=== PATIENT | male | born 1960 | race Caucasian/White ===

== ENCOUNTER 2021-06-19 11:34 | Inpatient (IN) | payer OTHER ==
[2021-06-19 12:05] VITALS: BMI 26.6
[2021-06-19] MEDS ORDERED: FUROSEMIDE 40 MG/4 ML INJECTABLE VIAL IVPUSH ONE (13:15)
[2021-06-19] MEDS ORDERED: NITROGLYCERIN 2% OINTMENT - 1GM PACKET TD ONE ×2 (13:15→13:38)
[2021-06-19] MEDS ORDERED: NITROGLYCERIN SUBLINGUAL 1/150 0.4 MG TAB SL ONE (13:15)
[2021-06-19 13:21] LABS: VENOUS BASE EXCESS -1.4 mmol/L (-2-2); VENOUS PCO2 40.7 mmHg (38-52); VENOUS PH 7.381 (7.310-7.410)
[2021-06-19 13:22] LABS: BASO % 0.6 % (0-2.0); EOS % 0.7 % (0-4.5); HEMOGLOBIN 10.1 GM/dL (11.7-16.9); LYMPH % 7.1 % (8-40); MCH 30.2 pg (25.7-33.7); MCHC 31.7 g/dl (32.0-35.9); MEAN CELL VOLUME 95.3 fl (80-96); MEAN PLT VOLUME 9.2 fl (7.5-11.1); MONO % 8.2 % (3.8-10.2); NEUT % 83.4 % (42.8-82.8); PLATELET COUNT 237 10^3/uL (134-434); RBC 3.36 M/mm3 (4.00-5.60); RDW 19.7 % (11.9-15.9); WHITE BLOOD COUNT 7.4 K/mm3 (4.0-10.0)
[2021-06-19 13:31] LABS: INR 2.71 (0.83-1.09); PROTHROMBIN TIME (PATIENT) 31.5 SEC (9.7-13.0)
[2021-06-19 13:33] LABS: ACTIVATED PTT 40.7 SECONDS (25.2-36.5)
[2021-06-19] MEDS ORDERED: FUROSEMIDE 40 MG/4 ML INJECTABLE VIAL ONE (13:38)
[2021-06-19] MEDS ORDERED: NITROGLYCERIN SUBLINGUAL 1/150 0.4 MG TAB ONE (13:38)
[2021-06-19 13:47] LABS: BLOOD UREA NITROGEN 36.2 mg/dL (7-18); CALCIUM 8.6 mg/dL (8.5-10.1)
[2021-06-19 13:48] LABS: ALBUMIN 3.4 g/dl (3.4-5.0); MAGNESIUM 2.3 mg/dL (1.8-2.4)
[2021-06-19 13:51] LABS: CREATININE 1.8 mg/dL (0.55-1.3)
[2021-06-19 13:52] LABS: TOT PROT 6.9 g/dl (6.4-8.2)
[2021-06-19 13:53] LABS: BILIRUBIN,TOTAL 1.2 mg/dL (0.2-1)
[2021-06-19 13:56] LABS: N-TERMINAL BNP 7647.3 pg/ml (5-125)
[2021-06-19] MEDS ORDERED: levETIRAcetam 500 MG TABLET (FP) PO ONE (21:18)
[2021-06-19] MEDS ORDERED: ATORVASTATIN CA 80 MG TABLET (FP) ONE (21:18)
[2021-06-19] MEDS ORDERED: METOPROLOL TARTRATE 25 MG TABLET (FP) ONE (21:18)
[2021-06-19] MEDS ORDERED: DOCUSATE SODIUM 100 MG CAPSULE (FP) PO ONE (21:19)
[2021-06-19] MEDS: DOCUSATE SODIUM 100 MG CAPSULE (FP) PO SCH (22:40)
[2021-06-19] MEDS: ATORVASTATIN CA 80 MG TABLET (FP) PO SCH (22:40)
[2021-06-19] MEDS: METOPROLOL TARTRATE 25 MG TABLET (FP) PO SCH (22:40)
[2021-06-19] MEDS: levETIRAcetam XR 750 MG TAB PO SCH (22:40)
[2021-06-19 23:03] LABS: EPI CELLS 2 /uL (0-25.1); HYALINE CASTS 0 /uL (0-3.1); PH,URINE 5.5 (5.0-8.0); URINE APPEARANCE Error; URINE BACTERIA 0 /uL (0-1359); URINE BILIRUBIN NEGATIVE (NEGATIVE); URINE COLOR YELLOW; URINE GLUCOSE (UA) NEGATIVE (NEGATIVE); URINE KETONE NEGATIVE (NEGATIVE); URINE LEUK ESTERASE TRACE (NEGATIVE); URINE NITRITE NEGATIVE (NEGATIVE); URINE PROTEIN 2+ (NEGATIVE); URINE RBC 5 /uL (0-23.9); URINE UROBILINOGEN 0.2 mg/dL (0.2-1.0); URINE WBC 1 /uL (0-25.8)
[2021-06-20] MEDS ORDERED: hydrALAZINE HCL 20 MG/ML VIAL IVPUSH ONE (08:07)
[2021-06-20 08:50] LABS: INR 2.3 (0.83-1.09); PROTHROMBIN TIME (PATIENT) 26.7 SEC (9.7-13.0)
[2021-06-20 08:53] LABS: BASO % 0.6 % (0-2.0); EOS % 3.5 % (0-4.5); HEMOGLOBIN 10.2 GM/dL (11.7-16.9); MCH 30.2 pg (25.7-33.7); MCHC 31.8 g/dl (32.0-35.9); MEAN PLT VOLUME 8.9 fl (7.5-11.1); MONO % 7.3 % (3.8-10.2); NEUT % 83.6 % (42.8-82.8); PLATELET COUNT 233 10^3/uL (134-434); RBC 3.37 M/mm3 (4.00-5.60); WHITE BLOOD COUNT 7.9 K/mm3 (4.0-10.0)
[2021-06-20 09:02] LABS: CALCIUM 8.2 mg/dL (8.5-10.1); PHOSPHOROUS 5.4 mg/dL (2.5-4.9)
[2021-06-20 09:03] LABS: ALBUMIN 3.3 g/dl (3.4-5.0); BLOOD UREA NITROGEN 35.6 mg/dL (7-18); MAGNESIUM 2.3 mg/dL (1.8-2.4)
[2021-06-20 09:04] LABS: BILIRUBIN,TOTAL 1.3 mg/dL (0.2-1)
[2021-06-20 09:06] LABS: CREATININE 1.7 mg/dL (0.55-1.3)
[2021-06-20] MEDS ORDERED: MAGNESIUM SULF 50% (8.12 MEQ/2 ML-1 GM VIAL) IVPB ONE (09:45)
[2021-06-20] MEDS ORDERED: FUROSEMIDE 40 MG/4 ML INJECTABLE VIAL IVPUSH ONE (09:57)
[2021-06-20] MEDS ORDERED: amLODIPine BESYLATE 5 MG TABLET (FP) PO SCH (10:00)
[2021-06-20] MEDS ORDERED: FUROSEMIDE 40 MG/4 ML INJECTABLE VIAL IVPUSH SCH ×3 (10:00→22:00)
[2021-06-20] MEDS ORDERED: METOPROLOL TARTRATE 25 MG TABLET (FP) PO SCH (10:02)
[2021-06-20] MEDS ORDERED: POTASSIUM CHLORIDE TABS 10 MEQ TABLET.ER (FP) ONE (10:05)
[2021-06-20] MEDS ORDERED: amLODIPine BESYLATE 5 MG TABLET (FP) ONE ×2 (10:05→20:02)
[2021-06-20] MEDS ORDERED: DOCUSATE SODIUM 100 MG CAPSULE (FP) PO ONE (10:05)
[2021-06-20] MEDS ORDERED: FUROSEMIDE 40 MG/4 ML INJECTABLE VIAL ONE ×2 (10:06)
[2021-06-20] MEDS ORDERED: MAGNESIUM SULFATE IN WATER 2 GM/50 ML IVPB IVPB ONE (10:06)
[2021-06-20] MEDS: POTASSIUM CHLORIDE TABS 10 MEQ TABLET.ER (FP) PO SCH (10:25)
[2021-06-20] MEDS: DOCUSATE SODIUM 100 MG CAPSULE (FP) PO SCH ×2 (10:25→23:30)
[2021-06-20] MEDS: levETIRAcetam XR 750 MG TAB PO SCH ×2 (10:25→23:30)
[2021-06-20 12:35] LABS: RETICULOCYTES 3.45 % (0.5-1.5)
[2021-06-20] MEDS ORDERED: amLODIPine BESYLATE 5 MG TABLET (FP) PO ONE (18:50)
[2021-06-20] MEDS ORDERED: WARFARIN NA 1 MG TABLET ONE (20:02)
[2021-06-20] MEDS: WARFARIN NA 2 MG TABLET PO SCH (20:15)
[2021-06-20] MEDS: METOPROLOL TARTRATE 25 MG TABLET (FP) PO SCH (23:30)
[2021-06-20] MEDS: ATORVASTATIN CA 80 MG TABLET (FP) PO SCH (23:40)
[2021-06-21] MEDS ORDERED: ATORVASTATIN CA 80 MG TABLET (FP) ONE (01:54)
[2021-06-21] MEDS ORDERED: METOPROLOL TARTRATE 25 MG TABLET (FP) ONE (01:54)
[2021-06-21] MEDS ORDERED: levETIRAcetam 500 MG TABLET (FP) PO ONE (01:54)
[2021-06-21 07:29] LABS: CALCIUM 8.3 mg/dL (8.5-10.1)
[2021-06-21 07:30] LABS: BLOOD UREA NITROGEN 36.3 mg/dL (7-18); MAGNESIUM 2.6 mg/dL (1.8-2.4)
[2021-06-21 07:33] LABS: CREATININE 1.8 mg/dL (0.55-1.3); PHOSPHOROUS 5.4 mg/dL (2.5-4.9)
[2021-06-21 09:03] LABS: BASO % 0.6 % (0-2.0); EOS % 2.3 % (0-4.5); HEMATOCRIT 29.1 % (35.4-49); HEMOGLOBIN 9.4 GM/dL (11.7-16.9); LYMPH % 4.9 % (8-40); MCH 30.7 pg (25.7-33.7); MCHC 32.5 g/dl (32.0-35.9); MEAN CELL VOLUME 94.5 fl (80-96); MEAN PLT VOLUME 9.3 fl (7.5-11.1); MONO % 8.1 % (3.8-10.2); NEUT % 84.1 % (42.8-82.8); PLATELET COUNT 227 10^3/uL (134-434); RBC 3.07 M/mm3 (4.00-5.60); RDW 19.4 % (11.9-15.9); WHITE BLOOD COUNT 8.9 K/mm3 (4.0-10.0)
[2021-06-21] MEDS: POTASSIUM CHLORIDE TABS 10 MEQ TABLET.ER (FP) PO SCH (09:55)
[2021-06-21] MEDS: DOCUSATE SODIUM 100 MG CAPSULE (FP) PO SCH ×2 (09:56→21:40)
[2021-06-21] MEDS: METOPROLOL TARTRATE 25 MG TABLET (FP) PO SCH ×2 (09:56→21:40)
[2021-06-21] MEDS: levETIRAcetam XR 750 MG TAB PO SCH ×2 (09:58→21:41)
[2021-06-21] MEDS ORDERED: FUROSEMIDE 40 MG/4 ML INJECTABLE VIAL IVPUSH SCH (10:00)
[2021-06-21] MEDS ORDERED: amLODIPine BESYLATE 10 MG TABLET (FP) PO SCH (10:00)
[2021-06-21] MEDS ORDERED: PANTOPRAZOLE 40 MG TABLET PO SCH (10:00)
[2021-06-21] MEDS ORDERED: FERRIC CARBOXYMALTOSE 750 MG in SODIUM CHLORIDE 250 ML IVPB ONE (15:00)
[2021-06-21 16:58] LABS: INR 2.23 (0.83-1.09); PROTHROMBIN TIME (PATIENT) 25.8 SEC (9.7-13.0)
[2021-06-21] MEDS: WARFARIN NA 2 MG TABLET PO SCH (17:19)
[2021-06-21] MEDS: ATORVASTATIN CA 80 MG TABLET (FP) PO SCH (21:40)
[2021-06-22] MEDS: METOPROLOL TARTRATE 25 MG TABLET (FP) PO SCH ×2 (09:13→21:12)
[2021-06-22] MEDS: PANTOPRAZOLE 40 MG TABLET PO SCH (09:14)
[2021-06-22] MEDS: amLODIPine BESYLATE 10 MG TABLET (FP) PO SCH (09:14)
[2021-06-22] MEDS: POTASSIUM CHLORIDE TABS 10 MEQ TABLET.ER (FP) PO SCH (09:14)
[2021-06-22] MEDS: DOCUSATE SODIUM 100 MG CAPSULE (FP) PO SCH ×2 (09:14→21:12)
[2021-06-22] MEDS: levETIRAcetam XR 750 MG TAB PO SCH ×2 (09:15→21:12)
[2021-06-22 09:24] LABS: HEMATOCRIT 32.9 % (35.4-49); HEMOGLOBIN 10.7 GM/dL (11.7-16.9); INR 2.39 (0.83-1.09); MCH 30.4 pg (25.7-33.7); MCHC 32.4 g/dl (32.0-35.9); MEAN PLT VOLUME 8.7 fl (7.5-11.1); PLATELET COUNT 226 10^3/uL (134-434); PROTHROMBIN TIME (PATIENT) 27.7 SEC (9.7-13.0); RDW 19.5 % (11.9-15.9); WHITE BLOOD COUNT 6.4 K/mm3 (4.0-10.0)
[2021-06-22 09:57] LABS: ALBUMIN 3.2 g/dl (3.4-5.0); BLOOD UREA NITROGEN 38.7 mg/dL (7-18); CALCIUM 8.4 mg/dL (8.5-10.1)
[2021-06-22 10:00] LABS: CREATININE 1.9 mg/dL (0.55-1.3); MAGNESIUM 2.4 mg/dL (1.8-2.4)
[2021-06-22] MEDS ORDERED: FUROSEMIDE 40 MG/4 ML INJECTABLE VIAL IVPUSH SCH (10:00)
[2021-06-22 10:02] LABS: BILIRUBIN,TOTAL 1.3 mg/dL (0.2-1); TOT PROT 6.7 g/dl (6.4-8.2)
[2021-06-22] MEDS ORDERED: LABETALOL HCL 100 MG TABLET (FP) PO SCH (11:00)
[2021-06-22] MEDS: hydrALAZINE HCL 25 MG TABLET (FP) PO SCH ×3 (11:26→21:12)
[2021-06-22] MEDS: FUROSEMIDE 40 MG/4 ML INJECTABLE VIAL IVPUSH SCH (14:05)
[2021-06-22 15:11] LABS: N-TERMINAL BNP 5494.2 pg/ml (5-125)
[2021-06-22] MEDS: WARFARIN NA 2 MG TABLET PO SCH (17:01)
[2021-06-22] MEDS ORDERED: MELATONIN 5 MG TABLETS PO PRN (20:39)
[2021-06-22] MEDS: ATORVASTATIN CA 80 MG TABLET (FP) PO SCH (21:12)
[2021-06-22] MEDS ORDERED: LORazepam 2 MG/ML SDV VIAL IVPUSH ONE (21:15)
[2021-06-23] MEDS: FUROSEMIDE 40 MG/4 ML INJECTABLE VIAL IVPUSH SCH (05:04)
[2021-06-23] MEDS: hydrALAZINE HCL 25 MG TABLET (FP) PO SCH ×3 (05:04→21:11)
[2021-06-23] MEDS ORDERED: ACETAMINOPHEN 1000 MG/100 ML BAG IVPB ONE (08:59)
[2021-06-23] MEDS: POTASSIUM CHLORIDE TABS 10 MEQ TABLET.ER (FP) PO SCH (09:00)
[2021-06-23] MEDS: METOPROLOL TARTRATE 25 MG TABLET (FP) PO SCH ×2 (09:00→21:10)
[2021-06-23] MEDS: levETIRAcetam XR 750 MG TAB PO SCH ×2 (09:00→21:10)
[2021-06-23] MEDS: PANTOPRAZOLE 40 MG TABLET PO SCH (09:00)
[2021-06-23] MEDS: amLODIPine BESYLATE 10 MG TABLET (FP) PO SCH (09:00)
[2021-06-23] MEDS: DOCUSATE SODIUM 100 MG CAPSULE (FP) PO SCH ×2 (09:01→21:11)
[2021-06-23 09:30] LABS: MCH 29.7 pg (25.7-33.7); MCHC 31.4 g/dl (32.0-35.9); MEAN CELL VOLUME 94.4 fl (80-96); MEAN PLT VOLUME 9.1 fl (7.5-11.1); PLATELET COUNT 264 10^3/uL (134-434); RBC 3.71 M/mm3 (4.00-5.60); RDW 19.1 % (11.9-15.9); WHITE BLOOD COUNT 8.4 K/mm3 (4.0-10.0)
[2021-06-23 09:40] LABS: INR 2.52 (0.83-1.09); PROTHROMBIN TIME (PATIENT) 29.2 SEC (9.7-13.0)
[2021-06-23 09:51] LABS: CALCIUM 8.7 mg/dL (8.5-10.1)
[2021-06-23 09:52] LABS: MAGNESIUM 2.4 mg/dL (1.8-2.4)
[2021-06-23 09:53] LABS: ALBUMIN 3.4 g/dl (3.4-5.0)
[2021-06-23 09:54] LABS: BLOOD UREA NITROGEN 36.1 mg/dL (7-18)
[2021-06-23 09:56] LABS: PHOSPHOROUS 4.6 mg/dL (2.5-4.9); TOT PROT 7.3 g/dl (6.4-8.2)
[2021-06-23 09:57] LABS: BILIRUBIN,TOTAL 1.3 mg/dL (0.2-1)
[2021-06-23] MEDS ORDERED: SILVER SULFADIAZINE 1% TOP CREAM 400 GM JAR TP SCH (10:00)
[2021-06-23] MEDS ORDERED: SODIUM HYPOCHLORITE 0.5% 473 ML- BULK BOTTLE TP SCH (10:00)
[2021-06-23 12:42] LABS: N-TERMINAL BNP 7026.6 pg/ml (5-125)
[2021-06-23] MEDS: FUROSEMIDE 40 MG TABLET (FP) PO SCH (14:30)
[2021-06-23] MEDS: WARFARIN NA 2 MG TABLET PO SCH (17:11)
[2021-06-23] MEDS: MELATONIN 5 MG TABLETS PO SCH (21:11)
[2021-06-23] MEDS: ATORVASTATIN CA 80 MG TABLET (FP) PO SCH (21:11)
[2021-06-23] MEDS ORDERED: ACETAMINOPHEN 325 MG TABLET (FP) PO ONE (21:36)
[2021-06-24] MEDS: hydrALAZINE HCL 25 MG TABLET (FP) PO SCH ×2 (05:24→13:17)
[2021-06-24] MEDS: FUROSEMIDE 40 MG TABLET (FP) PO SCH ×2 (05:24→13:17)
[2021-06-24] MEDS: METOPROLOL TARTRATE 25 MG TABLET (FP) PO SCH ×3 (07:31→21:41)
[2021-06-24] MEDS: PANTOPRAZOLE 40 MG TABLET PO SCH (09:39)
[2021-06-24] MEDS: levETIRAcetam XR 750 MG TAB PO SCH ×2 (09:39→21:41)
[2021-06-24] MEDS: amLODIPine BESYLATE 10 MG TABLET (FP) PO SCH (09:40)
[2021-06-24] MEDS: POTASSIUM CHLORIDE TABS 10 MEQ TABLET.ER (FP) PO SCH (09:40)
[2021-06-24] MEDS: DOCUSATE SODIUM 100 MG CAPSULE (FP) PO SCH ×2 (09:40→21:41)
[2021-06-24 13:00] LABS: HEMATOCRIT 33.7 % (35.4-49); HEMOGLOBIN 10.7 GM/dL (11.7-16.9); MCH 29.7 pg (25.7-33.7); MCHC 31.7 g/dl (32.0-35.9); MEAN CELL VOLUME 93.7 fl (80-96); MEAN PLT VOLUME 9.3 fl (7.5-11.1); PLATELET COUNT 244 10^3/uL (134-434); RDW 18.2 % (11.9-15.9); WHITE BLOOD COUNT 5.8 K/mm3 (4.0-10.0)
[2021-06-24 13:04] LABS: INR 3.19 (0.83-1.09); PROTHROMBIN TIME (PATIENT) 37.1 SEC (9.7-13.0)
[2021-06-24 13:27] LABS: ALBUMIN 3.4 g/dl (3.4-5.0); CALCIUM 8.3 mg/dL (8.5-10.1); PHOSPHOROUS 4.5 mg/dL (2.5-4.9)
[2021-06-24 13:28] LABS: BLOOD UREA NITROGEN 35.2 mg/dL (7-18); MAGNESIUM 2.3 mg/dL (1.8-2.4)
[2021-06-24 13:29] LABS: BILIRUBIN,TOTAL 0.9 mg/dL (0.2-1)
[2021-06-24] MEDS: ACETAMINOPHEN 325 MG TABLET (FP) PO PRN (16:01)
[2021-06-24] MEDS: WARFARIN NA 2 MG TABLET PO SCH (17:28)
[2021-06-24] MEDS: MELATONIN 5 MG TABLETS PO SCH (21:41)
[2021-06-24] MEDS: hydrALAZINE HCL 50 MG TABLET (FP) PO SCH (21:41)
[2021-06-24] MEDS: ATORVASTATIN CA 80 MG TABLET (FP) PO SCH (21:41)
[2021-06-25] MEDS: hydrALAZINE HCL 50 MG TABLET (FP) PO SCH ×3 (05:52→21:10)
[2021-06-25] MEDS: FUROSEMIDE 40 MG TABLET (FP) PO SCH ×2 (05:52→13:42)
[2021-06-25 08:50] LABS: HEMATOCRIT 35.3 % (35.4-49); HEMOGLOBIN 11.2 GM/dL (11.7-16.9); MCH 29.8 pg (25.7-33.7); MCHC 31.9 g/dl (32.0-35.9); MEAN CELL VOLUME 93.5 fl (80-96); MEAN PLT VOLUME 8.7 fl (7.5-11.1); PLATELET COUNT 264 10^3/uL (134-434); RBC 3.77 M/mm3 (4.00-5.60); RDW 19.3 % (11.9-15.9); WHITE BLOOD COUNT 6.6 K/mm3 (4.0-10.0)
[2021-06-25] MEDS: DOCUSATE SODIUM 100 MG CAPSULE (FP) PO SCH ×2 (08:59→21:10)
[2021-06-25] MEDS: METOPROLOL TARTRATE 25 MG TABLET (FP) PO SCH ×2 (08:59→21:10)
[2021-06-25] MEDS: POTASSIUM CHLORIDE TABS 10 MEQ TABLET.ER (FP) PO SCH (08:59)
[2021-06-25] MEDS: ACETAMINOPHEN 325 MG TABLET (FP) PO PRN ×2 (08:59→19:58)
[2021-06-25] MEDS: levETIRAcetam XR 750 MG TAB PO SCH ×2 (08:59→21:09)
[2021-06-25] MEDS: PANTOPRAZOLE 40 MG TABLET PO SCH (09:01)
[2021-06-25] MEDS: amLODIPine BESYLATE 10 MG TABLET (FP) PO SCH (09:01)
[2021-06-25 09:58] LABS: BLOOD UREA NITROGEN 35.6 mg/dL (7-18); CALCIUM 8.3 mg/dL (8.5-10.1); CREATININE 1.9 mg/dL (0.55-1.3); MAGNESIUM 2.3 mg/dL (1.8-2.4); PHOSPHOROUS 3.9 mg/dL (2.5-4.9)
[2021-06-25 11:38] LABS: ACTIVATED PTT 50.3 SECONDS (25.2-36.5); INR 3.6 (0.83-1.09); PROTHROMBIN TIME (PATIENT) 41.9 SEC (9.7-13.0)
[2021-06-25] MEDS: WARFARIN NA 2 MG TABLET PO SCH (17:37)
[2021-06-25] MEDS: MELATONIN 5 MG TABLETS PO SCH (21:10)
[2021-06-25] MEDS: ATORVASTATIN CA 80 MG TABLET (FP) PO SCH (21:11)
[2021-06-25] MEDS ORDERED: LORazepam 1 MG TABLET PO ONE (21:15)
[2021-06-26] MEDS: ACETAMINOPHEN 325 MG TABLET (FP) PO PRN ×2 (05:09→18:24)
[2021-06-26] MEDS: FUROSEMIDE 40 MG TABLET (FP) PO SCH ×2 (05:09→14:14)
[2021-06-26] MEDS: hydrALAZINE HCL 50 MG TABLET (FP) PO SCH ×3 (05:09→21:10)
[2021-06-26 09:51] LABS: HEMATOCRIT 35.3 % (35.4-49); HEMOGLOBIN 11.6 GM/dL (11.7-16.9); MCH 30.7 pg (25.7-33.7); MCHC 32.8 g/dl (32.0-35.9); MEAN CELL VOLUME 93.7 fl (80-96); MEAN PLT VOLUME 8.8 fl (7.5-11.1); PLATELET COUNT 239 10^3/uL (134-434); RBC 3.77 M/mm3 (4.00-5.60); RDW 19.5 % (11.9-15.9); WHITE BLOOD COUNT 6.2 K/mm3 (4.0-10.0)
[2021-06-26 10:27] LABS: MAGNESIUM 2.4 mg/dL (1.8-2.4)
[2021-06-26 10:30] LABS: PHOSPHOROUS 4.1 mg/dL (2.5-4.9)
[2021-06-26] MEDS: METOPROLOL TARTRATE 25 MG TABLET (FP) PO SCH ×2 (11:31→21:11)
[2021-06-26] MEDS: DOCUSATE SODIUM 100 MG CAPSULE (FP) PO SCH ×2 (11:31→21:10)
[2021-06-26] MEDS: PANTOPRAZOLE 40 MG TABLET PO SCH (11:31)
[2021-06-26] MEDS: amLODIPine BESYLATE 10 MG TABLET (FP) PO SCH (11:32)
[2021-06-26] MEDS: levETIRAcetam XR 750 MG TAB PO SCH ×2 (11:32→21:11)
[2021-06-26] MEDS: POTASSIUM CHLORIDE TABS 10 MEQ TABLET.ER (FP) PO SCH (11:32)
[2021-06-26 11:58] LABS: PROTHROMBIN TIME (PATIENT) 43.8 SEC (9.7-13.0)
[2021-06-26 11:59] LABS: ACTIVATED PTT 50.4 SECONDS (25.2-36.5); INR 3.76 (0.83-1.09)
[2021-06-26 16:37] LABS: CALCIUM 8.6 mg/dL (8.5-10.1)
[2021-06-26 16:38] LABS: BLOOD UREA NITROGEN 33.6 mg/dL (7-18)
[2021-06-26 16:41] LABS: CREATININE 2.1 mg/dL (0.55-1.3)
[2021-06-26] MEDS: ATORVASTATIN CA 80 MG TABLET (FP) PO SCH (21:11)
[2021-06-26] MEDS: MELATONIN 5 MG TABLETS PO SCH (21:11)
[2021-06-27] MEDS: hydrALAZINE HCL 50 MG TABLET (FP) PO SCH ×2 (05:00→13:42)
[2021-06-27] MEDS: FUROSEMIDE 40 MG TABLET (FP) PO SCH ×2 (05:01→13:42)
[2021-06-27 08:44] LABS: HEMATOCRIT 35.6 % (35.4-49); HEMOGLOBIN 11.6 GM/dL (11.7-16.9); MCH 30.9 pg (25.7-33.7); MCHC 32.6 g/dl (32.0-35.9); MEAN CELL VOLUME 94.6 fl (80-96); MEAN PLT VOLUME 8.5 fl (7.5-11.1); PLATELET COUNT 225 10^3/uL (134-434); RBC 3.76 M/mm3 (4.00-5.60); RDW 19.9 % (11.9-15.9); WHITE BLOOD COUNT 6.7 K/mm3 (4.0-10.0)
[2021-06-27 08:52] LABS: INR 3.35 (0.83-1.09)
[2021-06-27 09:13] LABS: CALCIUM 8.8 mg/dL (8.5-10.1)
[2021-06-27 09:14] LABS: ALBUMIN 3.6 g/dl (3.4-5.0); BLOOD UREA NITROGEN 32.1 mg/dL (7-18); MAGNESIUM 2.3 mg/dL (1.8-2.4)
[2021-06-27 09:16] LABS: PHOSPHOROUS 4.1 mg/dL (2.5-4.9)
[2021-06-27 09:18] LABS: BILIRUBIN,TOTAL 1.2 mg/dL (0.2-1); TOT PROT 7.2 g/dl (6.4-8.2)
[2021-06-27] MEDS: PANTOPRAZOLE 40 MG TABLET PO SCH (09:54)
[2021-06-27] MEDS: POTASSIUM CHLORIDE TABS 10 MEQ TABLET.ER (FP) PO SCH (09:54)
[2021-06-27] MEDS: amLODIPine BESYLATE 10 MG TABLET (FP) PO SCH (09:54)
[2021-06-27] MEDS: levETIRAcetam XR 750 MG TAB PO SCH (09:55)
[2021-06-27] MEDS: METOPROLOL TARTRATE 25 MG TABLET (FP) PO SCH (09:55)
[2021-06-27] MEDS: DOCUSATE SODIUM 100 MG CAPSULE (FP) PO SCH (09:55)
[2021-06-27] MEDS: ACETAMINOPHEN 325 MG TABLET (FP) PO PRN ×2 (13:42→20:22)
[2021-06-27 14:16] VITALS: BP 144/92; PULSE 75; TEMP 98.4
[2021-06-27] MEDS: WARFARIN NA 2 MG TABLET PO SCH (17:16)
== END 2021-06-27 20:44 | DRG 291 ==
LOC: JER 11:34 → JERBED 14:00 → J4W 06-21 02:13 → J6S 06-21 15:05
PROVIDERS: ADMIT Internal Medicine; ATTEND Internal Medicine
DX: I13.0 Hypertensive heart and chronic kidney disease with heart failure and stage 1 through stage 4 chronic kidney disease, or unspecified chronic kidney disease (principal); I50.33 Acute on chronic diastolic (congestive) heart failure; I24.8 Other forms of acute ischemic heart disease; N17.9 Acute kidney failure, unspecified; I47.1 Supraventricular tachycardia; E87.70 Fluid overload, unspecified; N18.9 Chronic kidney disease, unspecified; I16.0 Hypertensive urgency; I25.10 Atherosclerotic heart disease of native coronary artery without angina pectoris; D50.9 Iron deficiency anemia, unspecified; Z98.61 Coronary angioplasty status
CPT/HCPCS: 36415; 71045-TC-FY; 76775-TC; 80048; 80053; 80061; 81003; 82550; 82607; 82728; 82746; 82803; 82962; 83010; 83540; 83550; 83615; 83735; 83880; 84100; 84484; 85025; 85027; 85045; 85610; 85730; 87040; 93005; 93010; 93306-TC; 94761; 97116-GP; 97162-GP; 99285-25; C9803; J1439; U0003; U0005

== ENCOUNTER 2021-09-15 11:13 | Inpatient (IN) | payer OTHER ==
[2021-09-15 11:26] VITALS: BMI 27.1
[2021-09-15] MEDS ORDERED: FUROSEMIDE 40 MG/4 ML INJECTABLE VIAL IVPUSH ONE (11:41)
[2021-09-15] MEDS ORDERED: FUROSEMIDE 40 MG/4 ML INJECTABLE VIAL ONE (11:52)
[2021-09-15 11:59] LABS: BASO % 0.7 % (0-2.0); EOS % 2.1 % (0-4.5); HEMATOCRIT 31.3 % (35.4-49); HEMOGLOBIN 10.3 GM/dL (11.7-16.9); LYMPH % 5.6 % (8-40); MCH 31.7 pg (25.7-33.7); MCHC 32.8 g/dl (32.0-35.9); MEAN CELL VOLUME 96.6 fl (80-96); MEAN PLT VOLUME 8.4 fl (7.5-11.1); MONO % 8.6 % (3.8-10.2); PLATELET COUNT 213 10^3/uL (134-434); RBC 3.24 M/mm3 (4.00-5.60); RDW 16.7 % (11.9-15.9); WHITE BLOOD COUNT 6.5 K/mm3 (4.0-10.0)
[2021-09-15 12:07] LABS: INR 1.58 (0.83-1.09); PROTHROMBIN TIME (PATIENT) 18.3 SEC (9.7-13.0)
[2021-09-15 12:10] LABS: ACTIVATED PTT 34.5 SECONDS (25.2-36.5)
[2021-09-15 12:21] LABS: ALBUMIN 3.6 g/dl (3.4-5.0); BLOOD UREA NITROGEN 28.1 mg/dL (7-18); CALCIUM 8.4 mg/dL (8.5-10.1)
[2021-09-15 12:26] LABS: BILIRUBIN,TOTAL 0.9 mg/dL (0.2-1)
[2021-09-15 12:29] LABS: N-TERMINAL BNP 9251.2 pg/ml (5-125)
[2021-09-15] MEDS ORDERED: HEPARIN NA (PORCINE) 5,000 UNITS/ML 1ML VIAL IVPUSH PRN ×2 (15:08)
[2021-09-15] MEDS ORDERED: DOCUSATE SODIUM 100 MG CAPSULE (FP) PO PRN (15:09)
[2021-09-15] MEDS: HEPARIN INFUSION - 25,000 UNITS/500 ML INFUS.BAG IVPB SCH (15:20)
[2021-09-15] MEDS ORDERED: hydrALAZINE HCL 50 MG TABLET (FP) PO ONE ×2 (16:54)
[2021-09-15] MEDS ORDERED: hydrALAZINE HCL 50 MG TABLET (FP) ONE (17:09)
[2021-09-15] MEDS ORDERED: HEPARIN INFUSION - 25,000 UNITS/500 ML INFUS.BAG IVPB ONE (17:13)
[2021-09-15] MEDS: WARFARIN NA 2 MG TABLET PO SCH (19:22)
[2021-09-15] MEDS: hydrALAZINE HCL 50 MG TABLET (FP) PO SCH (22:06)
[2021-09-15] MEDS: ATORVASTATIN CA 80 MG TABLET (FP) PO SCH (22:07)
[2021-09-15] MEDS: levETIRAcetam XR 750 MG TAB PO SCH (22:08)
[2021-09-15] MEDS: NYSTATIN 100000 UNIT/GM TOPICAL OINTMENT 15 GM TUBE TP SCH (22:09)
[2021-09-15] MEDS ORDERED: PNEUMOC 13-VAL CONJ-DIP CRM/PF 0.5 ML DISP.SYRIN IM ONE (23:26)
[2021-09-16] MEDS: hydrALAZINE HCL 50 MG TABLET (FP) PO SCH ×3 (05:53→21:57)
[2021-09-16 07:43] LABS: HEMATOCRIT 30.9 % (35.4-49); HEMOGLOBIN 10.3 GM/dL (11.7-16.9); MCHC 33.2 g/dl (32.0-35.9); MEAN CELL VOLUME 96.2 fl (80-96); MEAN PLT VOLUME 8.2 fl (7.5-11.1); PLATELET COUNT 210 10^3/uL (134-434); RBC 3.22 M/mm3 (4.00-5.60); RDW 17.9 % (11.9-15.9); WHITE BLOOD COUNT 8.1 K/mm3 (4.0-10.0)
[2021-09-16 07:51] LABS: ACTIVATED PTT 63.8 SECONDS (25.2-36.5)
[2021-09-16 08:10] LABS: ALBUMIN 3.4 g/dl (3.4-5.0); BLOOD UREA NITROGEN 29.4 mg/dL (7-18); CALCIUM 8.2 mg/dL (8.5-10.1)
[2021-09-16 08:13] LABS: CREATININE 2.1 mg/dL (0.55-1.3)
[2021-09-16 08:14] LABS: TOT PROT 6.7 g/dl (6.4-8.2)
[2021-09-16 08:31] LABS: INR 1.66 (0.83-1.09); PROTHROMBIN TIME (PATIENT) 19.2 SEC (9.7-13.0)
[2021-09-16] MEDS: HEPARIN INFUSION - 25,000 UNITS/500 ML INFUS.BAG IVPB SCH ×2 (08:52→15:15)
[2021-09-16] MEDS: levETIRAcetam XR 750 MG TAB PO SCH ×2 (09:37→21:58)
[2021-09-16] MEDS: METOPROLOL TARTRATE 25 MG TABLET (FP) PO SCH (09:37)
[2021-09-16] MEDS: PANTOPRAZOLE 40 MG TABLET PO SCH (09:37)
[2021-09-16] MEDS: MULTIVITAMINS THER W-MINERALS COMBO TABLET (FP) PO SCH (09:37)
[2021-09-16] MEDS: FUROSEMIDE 40 MG/4 ML INJECTABLE VIAL IVPUSH SCH (09:38)
[2021-09-16] MEDS ORDERED: PNEUMOC 13-VAL CONJ-DIP CRM/PF 0.5 ML DISP.SYRIN IM ONE (10:00)
[2021-09-16] MEDS ORDERED: FLU VACC QS2021-22(6MOS UP)/PF 60 MCG/0.5 ML SYRINGE IM ONE (10:00)
[2021-09-16] MEDS ORDERED: PNEUMOCOCCAL 23 VACCINE 0.5 ML VIAL IM ONE (10:00)
[2021-09-16] MEDS ORDERED: PATIENT'S OWN MEDICATION (NON-FORMULARY) (Cyanocobalamin (Vitamin B-12) [Vitamin B-12] 1,0 PO SCH (10:00)
[2021-09-16] MEDS: NYSTATIN 100000 UNIT/GM TOPICAL OINTMENT 15 GM TUBE TP SCH ×2 (10:27→21:59)
[2021-09-16] MEDS: POTASSIUM CHLORIDE TABS 10 MEQ TABLET.ER (FP) PO SCH (12:45)
[2021-09-16] MEDS: WARFARIN NA 2 MG TABLET PO SCH (17:11)
[2021-09-16] MEDS: ATORVASTATIN CA 80 MG TABLET (FP) PO SCH (21:58)
[2021-09-17] MEDS: hydrALAZINE HCL 50 MG TABLET (FP) PO SCH ×3 (05:59→21:55)
[2021-09-17 07:57] LABS: HEMATOCRIT 30.5 % (35.4-49); HEMOGLOBIN 10.2 GM/dL (11.7-16.9); MCH 32.1 pg (25.7-33.7); MCHC 33.5 g/dl (32.0-35.9); MEAN CELL VOLUME 95.8 fl (80-96); PLATELET COUNT 203 10^3/uL (134-434); RBC 3.19 M/mm3 (4.00-5.60); RDW 17.6 % (11.9-15.9)
[2021-09-17 08:16] LABS: CALCIUM 8.2 mg/dL (8.5-10.1)
[2021-09-17 08:17] LABS: BLOOD UREA NITROGEN 32.6 mg/dL (7-18)
[2021-09-17 08:20] LABS: CREATININE 2.1 mg/dL (0.55-1.3)
[2021-09-17] MEDS ORDERED: PATIENT'S OWN MEDICATION (NON-FORMULARY) (Cyanocobalamin (Vitamin B-12) [Vitamin B-12] 1,0 PO SCH (10:00)
[2021-09-17] MEDS: MULTIVITAMINS THER W-MINERALS COMBO TABLET (FP) PO SCH (10:40)
[2021-09-17] MEDS: FUROSEMIDE 40 MG/4 ML INJECTABLE VIAL IVPUSH SCH (10:40)
[2021-09-17] MEDS: POTASSIUM CHLORIDE TABS 10 MEQ TABLET.ER (FP) PO SCH (10:40)
[2021-09-17] MEDS: levETIRAcetam XR 750 MG TAB PO SCH ×2 (10:41→21:55)
[2021-09-17] MEDS: METOPROLOL TARTRATE 25 MG TABLET (FP) PO SCH (10:41)
[2021-09-17] MEDS: PANTOPRAZOLE 40 MG TABLET PO SCH (10:41)
[2021-09-17] MEDS: NYSTATIN 100000 UNIT/GM TOPICAL OINTMENT 15 GM TUBE TP SCH ×2 (10:42→21:57)
[2021-09-17] MEDS: ISOSORBIDE MONONITRATE 30 MG TAB.SR.24H (FP) PO SCH (10:43)
[2021-09-17] MEDS: HEPARIN INFUSION - 25,000 UNITS/500 ML INFUS.BAG IVPB SCH (14:15)
[2021-09-17] MEDS: WARFARIN NA 2 MG TABLET PO SCH (18:00)
[2021-09-17] MEDS: ATORVASTATIN CA 80 MG TABLET (FP) PO SCH (21:56)
[2021-09-18] MEDS: hydrALAZINE HCL 50 MG TABLET (FP) PO SCH ×3 (05:41→21:23)
[2021-09-18 07:41] LABS: CALCIUM 8.1 mg/dL (8.5-10.1)
[2021-09-18 07:42] LABS: BLOOD UREA NITROGEN 35.4 mg/dL (7-18)
[2021-09-18 07:45] LABS: CREATININE 2.1 mg/dL (0.55-1.3)
[2021-09-18 08:37] LABS: ACTIVATED PTT 66.7 SECONDS (25.2-36.5)
[2021-09-18] MEDS: FUROSEMIDE 40 MG/4 ML INJECTABLE VIAL IVPUSH SCH (09:16)
[2021-09-18] MEDS: MULTIVITAMINS THER W-MINERALS COMBO TABLET (FP) PO SCH (09:16)
[2021-09-18] MEDS: ISOSORBIDE MONONITRATE 30 MG TAB.SR.24H (FP) PO SCH (09:16)
[2021-09-18] MEDS: POTASSIUM CHLORIDE TABS 10 MEQ TABLET.ER (FP) PO SCH (09:16)
[2021-09-18] MEDS: METOPROLOL TARTRATE 25 MG TABLET (FP) PO SCH (09:16)
[2021-09-18] MEDS: PANTOPRAZOLE 40 MG TABLET PO SCH (09:16)
[2021-09-18] MEDS: NYSTATIN 100000 UNIT/GM TOPICAL OINTMENT 15 GM TUBE TP SCH ×2 (09:18→21:25)
[2021-09-18] MEDS: levETIRAcetam XR 750 MG TAB PO SCH ×2 (09:18→22:20)
[2021-09-18 09:37] LABS: INR 1.75 (0.83-1.09); PROTHROMBIN TIME (PATIENT) 20.2 SEC (9.7-13.0)
[2021-09-18 09:38] LABS: HEMATOCRIT 31.6 % (35.4-49); HEMOGLOBIN 10.5 GM/dL (11.7-16.9); MCH 32.2 pg (25.7-33.7); MCHC 33.4 g/dl (32.0-35.9); MEAN CELL VOLUME 96.6 fl (80-96); MEAN PLT VOLUME 9.1 fl (7.5-11.1); PLATELET COUNT 195 10^3/uL (134-434); RBC 3.27 M/mm3 (4.00-5.60); RDW 17.8 % (11.9-15.9); WHITE BLOOD COUNT 9.9 K/mm3 (4.0-10.0)
[2021-09-18] MEDS: HEPARIN INFUSION - 25,000 UNITS/500 ML INFUS.BAG IVPB SCH (14:31)
[2021-09-18] MEDS: LISINOPRIL 10 MG TABLET PO SCH (16:00)
[2021-09-18] MEDS: WARFARIN NA 2 MG TABLET PO SCH (17:29)
[2021-09-18] MEDS: ATORVASTATIN CA 80 MG TABLET (FP) PO SCH (21:23)
[2021-09-19] MEDS: hydrALAZINE HCL 50 MG TABLET (FP) PO SCH ×3 (05:40→23:37)
[2021-09-19 07:09] LABS: BLOOD UREA NITROGEN 37.7 mg/dL (7-18); CALCIUM 8.3 mg/dL (8.5-10.1); MAGNESIUM 2.4 mg/dL (1.8-2.4)
[2021-09-19 07:12] LABS: CREATININE 1.8 mg/dL (0.55-1.3); PHOSPHOROUS 4.2 mg/dL (2.5-4.9)
[2021-09-19 07:13] LABS: TOT PROT 6.4 g/dl (6.4-8.2)
[2021-09-19 07:14] LABS: BILIRUBIN,TOTAL 1.3 mg/dL (0.2-1)
[2021-09-19] MEDS: levETIRAcetam XR 750 MG TAB PO SCH ×2 (09:40→23:37)
[2021-09-19] MEDS: PANTOPRAZOLE 40 MG TABLET PO SCH (09:40)
[2021-09-19] MEDS: MULTIVITAMINS THER W-MINERALS COMBO TABLET (FP) PO SCH (09:40)
[2021-09-19] MEDS: METOPROLOL TARTRATE 25 MG TABLET (FP) PO SCH (09:40)
[2021-09-19] MEDS: NYSTATIN 100000 UNIT/GM TOPICAL OINTMENT 15 GM TUBE TP SCH ×2 (09:40→23:40)
[2021-09-19] MEDS: POTASSIUM CHLORIDE TABS 10 MEQ TABLET.ER (FP) PO SCH (09:40)
[2021-09-19] MEDS: ISOSORBIDE MONONITRATE 30 MG TAB.SR.24H (FP) PO SCH (09:40)
[2021-09-19] MEDS: LISINOPRIL 10 MG TABLET PO SCH (09:40)
[2021-09-19] MEDS: FUROSEMIDE 40 MG/4 ML INJECTABLE VIAL IVPUSH SCH (09:40)
[2021-09-19 11:16] LABS: HEMATOCRIT 30.9 % (35.4-49); HEMOGLOBIN 9.9 GM/dL (11.7-16.9); MCH 31.4 pg (25.7-33.7); MCHC 32.1 g/dl (32.0-35.9); MEAN CELL VOLUME 97.7 fl (80-96); MEAN PLT VOLUME 9.5 fl (7.5-11.1); PLATELET COUNT 195 10^3/uL (134-434); RBC 3.16 M/mm3 (4.00-5.60); RDW 17.8 % (11.9-15.9); WHITE BLOOD COUNT 9.7 K/mm3 (4.0-10.0)
[2021-09-19 11:23] LABS: BILIRUBIN,DIRECT 0.4 mg/dL (0.0-0.2)
[2021-09-19 11:47] LABS: INR 1.88 (0.83-1.09); PROTHROMBIN TIME (PATIENT) 21.8 SEC (9.7-13.0)
[2021-09-19] MEDS: HEPARIN INFUSION - 25,000 UNITS/500 ML INFUS.BAG IVPB SCH (16:02)
[2021-09-19] MEDS: WARFARIN NA 2 MG TABLET PO SCH (17:46)
[2021-09-19] MEDS: ATORVASTATIN CA 80 MG TABLET (FP) PO SCH (23:36)
[2021-09-20 07:26] LABS: HEMATOCRIT 30.1 % (35.4-49); HEMOGLOBIN 10.4 GM/dL (11.7-16.9); MCH 32.7 pg (25.7-33.7); MCHC 34.7 g/dl (32.0-35.9); MEAN CELL VOLUME 94.4 fl (80-96); MEAN PLT VOLUME 8.9 fl (7.5-11.1); PLATELET COUNT 192 10^3/uL (134-434); RBC 3.18 M/mm3 (4.00-5.60); RDW 17.3 % (11.9-15.9)
[2021-09-20 07:52] LABS: CALCIUM 8.2 mg/dL (8.5-10.1)
[2021-09-20 07:54] LABS: ALBUMIN 3.2 g/dl (3.4-5.0); BLOOD UREA NITROGEN 34.9 mg/dL (7-18); CREATININE 1.8 mg/dL (0.55-1.3)
[2021-09-20 07:55] LABS: BILIRUBIN,TOTAL 1.2 mg/dL (0.2-1); TOT PROT 6.6 g/dl (6.4-8.2)
[2021-09-20] MEDS: levETIRAcetam XR 750 MG TAB PO SCH ×2 (09:47→22:30)
[2021-09-20] MEDS: hydrALAZINE HCL 50 MG TABLET (FP) PO SCH ×3 (09:47→22:30)
[2021-09-20] MEDS: MULTIVITAMINS THER W-MINERALS COMBO TABLET (FP) PO SCH (09:47)
[2021-09-20] MEDS: FUROSEMIDE 40 MG/4 ML INJECTABLE VIAL IVPUSH SCH (09:47)
[2021-09-20] MEDS: LISINOPRIL 10 MG TABLET PO SCH (09:47)
[2021-09-20] MEDS: METOPROLOL TARTRATE 25 MG TABLET (FP) PO SCH (09:47)
[2021-09-20] MEDS: POTASSIUM CHLORIDE TABS 10 MEQ TABLET.ER (FP) PO SCH (09:47)
[2021-09-20] MEDS: PANTOPRAZOLE 40 MG TABLET PO SCH (09:47)
[2021-09-20] MEDS: ISOSORBIDE MONONITRATE 30 MG TAB.SR.24H (FP) PO SCH (09:47)
[2021-09-20] MEDS: NYSTATIN 100000 UNIT/GM TOPICAL OINTMENT 15 GM TUBE TP SCH ×2 (09:48→22:30)
[2021-09-20 11:06] LABS: INR 2.22 (0.83-1.09); PROTHROMBIN TIME (PATIENT) 25.7 SEC (9.7-13.0)
[2021-09-20 11:09] LABS: ACTIVATED PTT 81.8 SECONDS (25.2-36.5)
[2021-09-20] MEDS ORDERED: FUROSEMIDE 40 MG/4 ML INJECTABLE VIAL IVPUSH ONE (14:00)
[2021-09-20] MEDS: WARFARIN NA 2 MG TABLET PO SCH (17:33)
[2021-09-20] MEDS: ATORVASTATIN CA 80 MG TABLET (FP) PO SCH (22:30)
[2021-09-21] MEDS: hydrALAZINE HCL 50 MG TABLET (FP) PO SCH ×3 (06:06→22:28)
[2021-09-21 07:35] LABS: INR 2.24 (0.83-1.09)
[2021-09-21 07:39] LABS: HEMATOCRIT 31.2 % (35.4-49); HEMOGLOBIN 10.4 GM/dL (11.7-16.9); MCH 31.7 pg (25.7-33.7); MCHC 33.3 g/dl (32.0-35.9); MEAN CELL VOLUME 95.3 fl (80-96); MEAN PLT VOLUME 9.7 fl (7.5-11.1); PLATELET COUNT 211 10^3/uL (134-434); RBC 3.27 M/mm3 (4.00-5.60); RDW 17.5 % (11.9-15.9); WHITE BLOOD COUNT 7.7 K/mm3 (4.0-10.0)
[2021-09-21 08:01] LABS: ALBUMIN 3.3 g/dl (3.4-5.0); BLOOD UREA NITROGEN 38.6 mg/dL (7-18); CALCIUM 8.1 mg/dL (8.5-10.1)
[2021-09-21 08:04] LABS: CREATININE 1.9 mg/dL (0.55-1.3)
[2021-09-21 08:06] LABS: BILIRUBIN,TOTAL 1.3 mg/dL (0.2-1); TOT PROT 6.8 g/dl (6.4-8.2)
[2021-09-21] MEDS: METOPROLOL TARTRATE 25 MG TABLET (FP) PO SCH (11:11)
[2021-09-21] MEDS: POTASSIUM CHLORIDE TABS 10 MEQ TABLET.ER (FP) PO SCH (11:11)
[2021-09-21] MEDS: MULTIVITAMINS THER W-MINERALS COMBO TABLET (FP) PO SCH (11:11)
[2021-09-21] MEDS: LISINOPRIL 10 MG TABLET PO SCH (11:11)
[2021-09-21] MEDS: PANTOPRAZOLE 40 MG TABLET PO SCH (11:11)
[2021-09-21] MEDS: ISOSORBIDE MONONITRATE 30 MG TAB.SR.24H (FP) PO SCH (11:11)
[2021-09-21] MEDS: FUROSEMIDE 40 MG/4 ML INJECTABLE VIAL IVPUSH SCH ×2 (11:12→16:58)
[2021-09-21] MEDS: NYSTATIN 100000 UNIT/GM TOPICAL OINTMENT 15 GM TUBE TP SCH ×2 (11:12→22:29)
[2021-09-21] MEDS: levETIRAcetam XR 750 MG TAB PO SCH ×2 (11:13→22:29)
[2021-09-21] MEDS ORDERED: FUROSEMIDE 40 MG TABLET (FP) PO ONE (14:00)
[2021-09-21] MEDS: WARFARIN NA 2 MG TABLET PO SCH (17:27)
[2021-09-21] MEDS: ATORVASTATIN CA 80 MG TABLET (FP) PO SCH (22:29)
[2021-09-22] MEDS: hydrALAZINE HCL 50 MG TABLET (FP) PO SCH ×3 (06:09→22:25)
[2021-09-22] MEDS: FUROSEMIDE 40 MG/4 ML INJECTABLE VIAL IVPUSH SCH ×4 (06:10→21:28)
[2021-09-22 08:03] LABS: HEMATOCRIT 31.3 % (35.4-49); HEMOGLOBIN 10.4 GM/dL (11.7-16.9); MCH 31.6 pg (25.7-33.7); MCHC 33.4 g/dl (32.0-35.9); MEAN CELL VOLUME 94.7 fl (80-96); MEAN PLT VOLUME 9.5 fl (7.5-11.1); PLATELET COUNT 222 10^3/uL (134-434); RDW 16.7 % (11.9-15.9); WHITE BLOOD COUNT 7.9 K/mm3 (4.0-10.0)
[2021-09-22] MEDS ORDERED: POTASSIUM CHLORIDE TABS 20 MEQ TABLET.ER (FP) PO ONE (08:26)
[2021-09-22 08:36] LABS: ALBUMIN 3.4 g/dl (3.4-5.0); BLOOD UREA NITROGEN 42.1 mg/dL (7-18); CALCIUM 8.3 mg/dL (8.5-10.1)
[2021-09-22 08:40] LABS: CREATININE 2.1 mg/dL (0.55-1.3)
[2021-09-22 10:18] LABS: MAGNESIUM 2.3 mg/dL (1.8-2.4)
[2021-09-22] MEDS: METOPROLOL TARTRATE 25 MG TABLET (FP) PO SCH (10:27)
[2021-09-22] MEDS: POTASSIUM CHLORIDE TABS 10 MEQ TABLET.ER (FP) PO SCH (10:27)
[2021-09-22] MEDS: ISOSORBIDE MONONITRATE 30 MG TAB.SR.24H (FP) PO SCH (10:27)
[2021-09-22] MEDS: NYSTATIN 100000 UNIT/GM TOPICAL OINTMENT 15 GM TUBE TP SCH ×2 (10:28→21:29)
[2021-09-22] MEDS: LISINOPRIL 10 MG TABLET PO SCH (10:28)
[2021-09-22] MEDS: MULTIVITAMINS THER W-MINERALS COMBO TABLET (FP) PO SCH (10:28)
[2021-09-22] MEDS: PANTOPRAZOLE 40 MG TABLET PO SCH (10:28)
[2021-09-22] MEDS: levETIRAcetam XR 750 MG TAB PO SCH ×2 (10:31→22:26)
[2021-09-22] MEDS: WARFARIN NA 2 MG TABLET PO SCH (17:07)
[2021-09-22] MEDS: ATORVASTATIN CA 80 MG TABLET (FP) PO SCH (21:23)
[2021-09-23] MEDS: hydrALAZINE HCL 50 MG TABLET (FP) PO SCH ×3 (06:05→21:23)
[2021-09-23] MEDS: FUROSEMIDE 40 MG/4 ML INJECTABLE VIAL IVPUSH SCH ×3 (06:06→14:01)
[2021-09-23 07:08] LABS: HEMATOCRIT 32.9 % (35.4-49); HEMOGLOBIN 10.9 GM/dL (11.7-16.9); MCH 31.4 pg (25.7-33.7); MCHC 33.1 g/dl (32.0-35.9); MEAN CELL VOLUME 94.9 fl (80-96); MEAN PLT VOLUME 9.4 fl (7.5-11.1); PLATELET COUNT 224 10^3/uL (134-434); RBC 3.47 M/mm3 (4.00-5.60); RDW 16.9 % (11.9-15.9); WHITE BLOOD COUNT 7.8 K/mm3 (4.0-10.0)
[2021-09-23 07:28] LABS: ALBUMIN 3.4 g/dl (3.4-5.0); BLOOD UREA NITROGEN 52.1 mg/dL (7-18)
[2021-09-23 07:30] LABS: CALCIUM 8.9 mg/dL (8.5-10.1)
[2021-09-23 07:31] LABS: CREATININE 2.4 mg/dL (0.55-1.3)
[2021-09-23 07:33] LABS: TOT PROT 7.3 g/dl (6.4-8.2)
[2021-09-23] MEDS: MULTIVITAMINS THER W-MINERALS COMBO TABLET (FP) PO SCH (09:40)
[2021-09-23] MEDS: METOPROLOL TARTRATE 25 MG TABLET (FP) PO SCH (09:40)
[2021-09-23] MEDS: POTASSIUM CHLORIDE TABS 10 MEQ TABLET.ER (FP) PO SCH (09:40)
[2021-09-23] MEDS: LISINOPRIL 10 MG TABLET PO SCH (09:40)
[2021-09-23] MEDS: ISOSORBIDE MONONITRATE 30 MG TAB.SR.24H (FP) PO SCH (09:40)
[2021-09-23] MEDS: PANTOPRAZOLE 40 MG TABLET PO SCH (09:40)
[2021-09-23] MEDS: levETIRAcetam XR 750 MG TAB PO SCH ×2 (09:41→21:23)
[2021-09-23] MEDS: NYSTATIN 100000 UNIT/GM TOPICAL OINTMENT 15 GM TUBE TP SCH ×2 (09:41→22:00)
[2021-09-23] MEDS: WARFARIN NA 2 MG TABLET PO SCH (18:20)
[2021-09-23] MEDS: ATORVASTATIN CA 80 MG TABLET (FP) PO SCH (21:23)
[2021-09-24] MEDS: FUROSEMIDE 40 MG/4 ML INJECTABLE VIAL IVPUSH SCH ×2 (05:23→06:16)
[2021-09-24] MEDS: hydrALAZINE HCL 50 MG TABLET (FP) PO SCH ×3 (05:24→22:00)
[2021-09-24 07:30] LABS: CALCIUM 8.9 mg/dL (8.5-10.1)
[2021-09-24 07:31] LABS: BLOOD UREA NITROGEN 63.1 mg/dL (7-18); MAGNESIUM 2.6 mg/dL (1.8-2.4)
[2021-09-24 07:34] LABS: CREATININE 2.7 mg/dL (0.55-1.3); PHOSPHOROUS 5.6 mg/dL (2.5-4.9)
[2021-09-24] MEDS: PANTOPRAZOLE 40 MG TABLET PO SCH (09:27)
[2021-09-24] MEDS: METOPROLOL TARTRATE 25 MG TABLET (FP) PO SCH (09:27)
[2021-09-24] MEDS: NYSTATIN 100000 UNIT/GM TOPICAL OINTMENT 15 GM TUBE TP SCH ×2 (09:27→21:35)
[2021-09-24] MEDS: POTASSIUM CHLORIDE TABS 10 MEQ TABLET.ER (FP) PO SCH (09:27)
[2021-09-24] MEDS: ISOSORBIDE MONONITRATE 30 MG TAB.SR.24H (FP) PO SCH (09:27)
[2021-09-24] MEDS: levETIRAcetam XR 750 MG TAB PO SCH ×2 (09:27→21:35)
[2021-09-24] MEDS: MULTIVITAMINS THER W-MINERALS COMBO TABLET (FP) PO SCH (09:27)
[2021-09-24] MEDS ORDERED: SODIUM CHLORIDE 250 ML IV STA (11:24)
[2021-09-24] MEDS: WARFARIN NA 2 MG TABLET PO SCH (17:59)
[2021-09-24] MEDS: ATORVASTATIN CA 80 MG TABLET (FP) PO SCH (21:34)
[2021-09-25] MEDS: hydrALAZINE HCL 50 MG TABLET (FP) PO SCH ×3 (06:09→21:20)
[2021-09-25 07:44] LABS: EOS % 4.3 % (0-4.5); HEMATOCRIT 31.7 % (35.4-49); HEMOGLOBIN 10.6 GM/dL (11.7-16.9); LYMPH % 6.7 % (8-40); MCH 31.4 pg (25.7-33.7); MCHC 33.5 g/dl (32.0-35.9); MEAN CELL VOLUME 93.8 fl (80-96); MEAN PLT VOLUME 9.3 fl (7.5-11.1); MONO % 11.4 % (3.8-10.2); NEUT % 76.6 % (42.8-82.8); PLATELET COUNT 234 10^3/uL (134-434); RBC 3.38 M/mm3 (4.00-5.60); WHITE BLOOD COUNT 5.7 K/mm3 (4.0-10.0)
[2021-09-25 08:15] LABS: BLOOD UREA NITROGEN 64.7 mg/dL (7-18); CALCIUM 8.5 mg/dL (8.5-10.1); MAGNESIUM 2.5 mg/dL (1.8-2.4)
[2021-09-25 08:18] LABS: CREATININE 2.6 mg/dL (0.55-1.3); PHOSPHOROUS 5.4 mg/dL (2.5-4.9)
[2021-09-25] MEDS: PANTOPRAZOLE 40 MG TABLET PO SCH (10:24)
[2021-09-25] MEDS: levETIRAcetam XR 750 MG TAB PO SCH ×2 (10:24→21:20)
[2021-09-25] MEDS: MULTIVITAMINS THER W-MINERALS COMBO TABLET (FP) PO SCH (10:24)
[2021-09-25] MEDS: POTASSIUM CHLORIDE TABS 10 MEQ TABLET.ER (FP) PO SCH (10:24)
[2021-09-25] MEDS: metoPROLOL SUCCINATE 25 MG TAB.SR.24H (FP) PO SCH (10:24)
[2021-09-25] MEDS: ISOSORBIDE MONONITRATE 30 MG TAB.SR.24H (FP) PO SCH (10:24)
[2021-09-25] MEDS: NYSTATIN 100000 UNIT/GM TOPICAL OINTMENT 15 GM TUBE TP SCH ×2 (10:24→21:21)
[2021-09-25 12:44] LABS: HEMOGLOBIN 10.8 GM/dL (11.7-16.9); MCH 30.9 pg (25.7-33.7); MCHC 32.8 g/dl (32.0-35.9); MEAN CELL VOLUME 94.2 fl (80-96); MEAN PLT VOLUME 9.4 fl (7.5-11.1); PLATELET COUNT 233 10^3/uL (134-434); RDW 16.5 % (11.9-15.9); WHITE BLOOD COUNT 4.6 K/mm3 (4.0-10.0)
[2021-09-25 12:50] LABS: INR 3.15 (0.83-1.09); PROTHROMBIN TIME (PATIENT) 36.7 SEC (9.7-13.0)
[2021-09-25 17:10] LABS: SARS-CoV-2 NAA Not Detected (Not Detected)
[2021-09-25] MEDS: ATORVASTATIN CA 80 MG TABLET (FP) PO SCH (21:20)
[2021-09-26] MEDS: hydrALAZINE HCL 50 MG TABLET (FP) PO SCH (05:53)
[2021-09-26 07:57] LABS: EOS % 7.1 % (0-4.5); HEMATOCRIT 32.1 % (35.4-49); HEMOGLOBIN 10.7 GM/dL (11.7-16.9); LYMPH % 11.1 % (8-40); MCH 31.2 pg (25.7-33.7); MCHC 33.2 g/dl (32.0-35.9); MEAN PLT VOLUME 9.4 fl (7.5-11.1); MONO % 13.1 % (3.8-10.2); NEUT % 67.7 % (42.8-82.8); PLATELET COUNT 223 10^3/uL (134-434); RBC 3.42 M/mm3 (4.00-5.60); RDW 16.5 % (11.9-15.9); WHITE BLOOD COUNT 4.2 K/mm3 (4.0-10.0)
[2021-09-26 08:11] LABS: INR 2.83 (0.83-1.09); PROTHROMBIN TIME (PATIENT) 32.9 SEC (9.7-13.0)
[2021-09-26 08:38] LABS: CALCIUM 8.4 mg/dL (8.5-10.1)
[2021-09-26 08:39] LABS: BLOOD UREA NITROGEN 57.1 mg/dL (7-18); MAGNESIUM 2.7 mg/dL (1.8-2.4)
[2021-09-26 08:42] LABS: CREATININE 2.3 mg/dL (0.55-1.3); PHOSPHOROUS 4.8 mg/dL (2.5-4.9)
[2021-09-26] MEDS: MULTIVITAMINS THER W-MINERALS COMBO TABLET (FP) PO SCH (09:44)
[2021-09-26] MEDS: ISOSORBIDE MONONITRATE 30 MG TAB.SR.24H (FP) PO SCH (09:44)
[2021-09-26] MEDS: FUROSEMIDE 40 MG/4 ML INJECTABLE VIAL IVPUSH SCH (09:44)
[2021-09-26] MEDS: levETIRAcetam XR 750 MG TAB PO SCH (09:44)
[2021-09-26] MEDS: POTASSIUM CHLORIDE TABS 10 MEQ TABLET.ER (FP) PO SCH (09:44)
[2021-09-26] MEDS: metoPROLOL SUCCINATE 25 MG TAB.SR.24H (FP) PO SCH (09:45)
[2021-09-26] MEDS: PANTOPRAZOLE 40 MG TABLET PO SCH (09:45)
[2021-09-26] MEDS: NYSTATIN 100000 UNIT/GM TOPICAL OINTMENT 15 GM TUBE TP SCH (09:45)
[2021-09-26 10:01] VITALS: BP 123/76; PULSE 65; TEMP 98.5
== END 2021-09-26 11:08 | DRG 193 ==
LOC: JER 11:13 → JERBED 13:51 → J4W 17:55
PROVIDERS: ADMIT Internal Medicine; ATTEND Internal Medicine
DX: J18.9 Pneumonia, unspecified organism (principal); I50.33 Acute on chronic diastolic (congestive) heart failure; J96.01 Acute respiratory failure with hypoxia; I13.0 Hypertensive heart and chronic kidney disease with heart failure and stage 1 through stage 4 chronic kidney disease, or unspecified chronic kidney disease; N18.4 Chronic kidney disease, stage 4 (severe); N17.9 Acute kidney failure, unspecified; I48.0 Paroxysmal atrial fibrillation; I25.119 Atherosclerotic heart disease of native coronary artery with unspecified angina pectoris; G40.909 Epilepsy, unspecified, not intractable, without status epilepticus; I35.1 Nonrheumatic aortic (valve) insufficiency; N28.1 Cyst of kidney, acquired; D64.9 Anemia, unspecified; Z86.711 Personal history of pulmonary embolism; Z86.73 Personal history of transient ischemic attack (TIA), and cerebral infarction without residual deficits; Z95.5 Presence of coronary angioplasty implant and graft; Z95.3 Presence of xenogenic heart valve; Z79.01 Long term (current) use of anticoagulants; Z88.0 Allergy status to penicillin
CPT/HCPCS: 36415; 71045-TC-FY; 80048; 80053; 82248; 82728; 83540; 83550; 83735; 83880; 84100; 84484; 85025; 85027; 85610; 85730; 90686; 90732; 93005; 93010; 93971-TC; 94010; 94761; 97116-GP; 97162-GP; 99285-25; C9803-CS; G0008; G0009; J1644; U0003; U0005

== ENCOUNTER 2021-11-19 10:33 | Inpatient (IN) | payer OTHER ==
[2021-11-19 11:10] VITALS: BMI 24.0
[2021-11-19 11:48] LABS: VENOUS BASE EXCESS -4.2 mmol/L (-2-2); VENOUS O2 SATURATION 81.2 % (70-80); VENOUS PCO2 29.5 mmHg (38-52); VENOUS PH 7.44 (7.310-7.410)
[2021-11-19 11:51] LABS: BASO % 0.6 % (0-2.0); EOS % 1.8 % (0-4.5); HEMATOCRIT 17.8 % (35.4-49); LYMPH % 5.4 % (8-40); MCH 31.9 pg (25.7-33.7); MCHC 31.9 g/dl (32.0-35.9); MEAN CELL VOLUME 99.9 fl (80-96); MEAN PLT VOLUME 8.7 fl (7.5-11.1); MONO % 8.4 % (3.8-10.2); NEUT % 83.8 % (42.8-82.8); PLATELET COUNT 220 10^3/uL (134-434); RBC 1.78 M/mm3 (4.00-5.60); RDW 20.7 % (11.9-15.9); WHITE BLOOD COUNT 8.6 K/mm3 (4.0-10.0)
[2021-11-19 11:56] LABS: HEMOGLOBIN 5.7 GM/dL (11.7-16.9)
[2021-11-19 11:58] LABS: INR 1.33 (0.83-1.09); PROTHROMBIN TIME (PATIENT) 15.3 SEC (9.7-13.0)
[2021-11-19 12:01] LABS: ACTIVATED PTT 32.5 SECONDS (25.2-36.5)
[2021-11-19 12:11] LABS: CALCIUM 8.1 mg/dL (8.5-10.1)
[2021-11-19 12:12] LABS: ALBUMIN 3.1 g/dl (3.4-5.0); BLOOD UREA NITROGEN 37.2 mg/dL (7-18); MAGNESIUM 2.6 mg/dL (1.8-2.4)
[2021-11-19 12:15] LABS: CREATININE 2.4 mg/dL (0.55-1.3); PHOSPHOROUS 4.2 mg/dL (2.5-4.9)
[2021-11-19 12:16] LABS: BILIRUBIN,TOTAL 0.5 mg/dL (0.2-1); TOT PROT 6.3 g/dl (6.4-8.2)
[2021-11-19 12:20] LABS: N-TERMINAL BNP 5025.7 pg/ml (5-125)
[2021-11-19] MEDS ORDERED: VANCOMYCIN 1 GM in D5W (PRE-DOCKED) 1,000 MG/250 ML IVPB ONE (13:30)
[2021-11-19] MEDS ORDERED: CEFEPIME HCL/D5W 2 GM/50 ML BAG IVPB ONE (13:31)
[2021-11-19] MEDS ORDERED: VANCOMYCIN 1 GRAM (PRE-DOCKED) 1,000 MG/250 ML BAG IVPB ONE (14:30)
[2021-11-19] MEDS ORDERED: CEFEPIME 2 GM/100 ML BAG IVPB ONE (14:30)
[2021-11-19] MEDS ORDERED: ONDANSETRON 4 MG/2 ML VIAL IVPUSH PRN (15:41)
[2021-11-19] MEDS ORDERED: ACETAMINOPHEN 325 MG TABLET (FP) PO PRN (15:41)
[2021-11-19] MEDS ORDERED: DOCUSATE SODIUM 100 MG CAPSULE (FP) PO PRN (15:49)
[2021-11-19] MEDS ORDERED: CEFEPIME 1 GM/100 ML BAG IVPB ONE (20:46)
[2021-11-19] MEDS: levETIRAcetam XR 750 MG TAB PO SCH (21:48)
[2021-11-19] MEDS: NYSTATIN 100000 UNIT/GM TOPICAL OINTMENT 15 GM TUBE TP SCH (21:49)
[2021-11-19] MEDS ORDERED: CEFEPIME 1 GM in DEXTROSE 5%-WATER - 50 ML IVPB SCH (22:00)
[2021-11-20] MEDS ORDERED: LORazepam 2 MG/ML SDV VIAL IVPUSH ONE (06:42)
[2021-11-20] MEDS ORDERED: FUROSEMIDE 40 MG/4 ML INJECTABLE VIAL IVPUSH ONE (07:01)
[2021-11-20] MEDS ORDERED: AZITHROMYCIN IVPB 500 MG/250 ML BAG IVPB ONE ×2 (08:01→09:12)
[2021-11-20] MEDS: NYSTATIN 100000 UNIT/GM TOPICAL OINTMENT 15 GM TUBE TP SCH ×2 (09:05→21:51)
[2021-11-20] MEDS ORDERED: ISOSORBIDE MONONITRATE 30 MG TAB.SR.24H (FP) PO ONE (09:11)
[2021-11-20] MEDS ORDERED: PANTOPRAZOLE 40 MG TABLET PO ONE (09:11)
[2021-11-20] MEDS ORDERED: CEFTRIAXONE 1 GM/50 ML BAG ONE (09:12)
[2021-11-20] MEDS: PANTOPRAZOLE 40 MG TABLET PO SCH (09:24)
[2021-11-20] MEDS: MULTIVITAMINS THER W-MINERALS COMBO TABLET (FP) PO SCH (09:25)
[2021-11-20 09:28] LABS: BASO % 0.7 % (0-2.0); EOS % 1.4 % (0-4.5); HEMATOCRIT 25.5 % (35.4-49); HEMOGLOBIN 8.1 GM/dL (11.7-16.9); LYMPH % 2.6 % (8-40); MCH 29.3 pg (25.7-33.7); MCHC 31.9 g/dl (32.0-35.9); MEAN PLT VOLUME 8.6 fl (7.5-11.1); MONO % 7.6 % (3.8-10.2); NEUT % 87.7 % (42.8-82.8); PLATELET COUNT 224 10^3/uL (134-434); RBC 2.78 M/mm3 (4.00-5.60); RDW 24.7 % (11.9-15.9); WHITE BLOOD COUNT 11.4 K/mm3 (4.0-10.0)
[2021-11-20 09:40] LABS: BLOOD UREA NITROGEN 37.1 mg/dL (7-18); CALCIUM 8.1 mg/dL (8.5-10.1)
[2021-11-20 09:44] LABS: CREATININE 2.2 mg/dL (0.55-1.3)
[2021-11-20] MEDS ORDERED: ISOSORBIDE MONONITRATE 30 MG TAB.SR.24H (FP) PO SCH (10:00)
[2021-11-20 10:14] LABS: ARTERIAL BLD GAS O2 SATURATION 99.2 % (95-98); ARTERIAL BLOOD GAS BASE EXCESS 0.5 mmol/L (-2-2); ARTERIAL BLOOD GAS PO2 154.2 mmHg (80-100); ARTERIAL BLOOD GAS pH 7.492 (7.350-7.450)
[2021-11-20 10:16] LABS: ALLENS TEST POSITIVE
[2021-11-20] MEDS: CEFTRIAXONE 1 GM in DEXTROSE 5%-WATER - 50 ML IVPB SCH (10:30)
[2021-11-20] MEDS: levETIRAcetam XR 750 MG TAB PO SCH ×2 (10:30→21:51)
[2021-11-20 11:00] LABS: EPI CELLS 2 /uL (0-25.1); HYALINE CASTS 0 /uL (0-3.1); URINE APPEARANCE CLEAR; URINE BACTERIA 0 /uL (0-1359); URINE BILIRUBIN NEGATIVE (NEGATIVE); URINE COLOR YELLOW; URINE GLUCOSE (UA) NEGATIVE (NEGATIVE); URINE KETONE NEGATIVE (NEGATIVE); URINE LEUK ESTERASE NEGATIVE (NEGATIVE); URINE NITRITE NEGATIVE (NEGATIVE); URINE PROTEIN 1+ (NEGATIVE); URINE RBC 5 /uL (0-23.9); URINE UROBILINOGEN 0.2 mg/dL (0.2-1.0); URINE WBC 1 /uL (0-25.8)
[2021-11-20] MEDS: ALPRAZolam 1 MG TABLET PO SCH ×2 (11:00→21:51)
[2021-11-20] MEDS ORDERED: ALPRAZolam 1 MG TABLET ONE ×2 (12:52→21:43)
[2021-11-20 19:32] LABS: RETICULOCYTES 5.82 % (0.5-1.5)
[2021-11-20 21:13] LABS: ANISOCYTOSIS 2+; MACROCYTOSIS 1+
[2021-11-20 21:25] LABS: PLATELET ESTIMATE ADEQUATE
[2021-11-20] MEDS ORDERED: ATORVASTATIN CA 80 MG TABLET (FP) ONE (21:44)
[2021-11-20] MEDS: ATORVASTATIN CA 80 MG TABLET (FP) PO SCH (21:51)
[2021-11-21 07:28] LABS: HEMATOCRIT 23.9 % (35.4-49); HEMOGLOBIN 8.1 GM/dL (11.7-16.9); MCH 30.6 pg (25.7-33.7); MCHC 33.8 g/dl (32.0-35.9); MEAN CELL VOLUME 90.6 fl (80-96); MEAN PLT VOLUME 8.5 fl (7.5-11.1); PLATELET COUNT 216 10^3/uL (134-434); RBC 2.64 M/mm3 (4.00-5.60); RDW 22.8 % (11.9-15.9); WHITE BLOOD COUNT 10.9 K/mm3 (4.0-10.0)
[2021-11-21 07:41] LABS: CALCIUM 8.1 mg/dL (8.5-10.1)
[2021-11-21 07:42] LABS: BLOOD UREA NITROGEN 37.5 mg/dL (7-18)
[2021-11-21 07:45] LABS: CREATININE 2.2 mg/dL (0.55-1.3)
[2021-11-21] MEDS: CEFTRIAXONE 1 GM in DEXTROSE 5%-WATER - 50 ML IVPB SCH (10:00)
[2021-11-21] MEDS ORDERED: AZITHROMYCIN IVPB 250 MG in DEXTROSE 5%-WATER - 250 ML IVPB SCH (10:00)
[2021-11-21] MEDS: PANTOPRAZOLE 40 MG TABLET PO SCH (10:00)
[2021-11-21] MEDS: levETIRAcetam XR 750 MG TAB PO SCH ×2 (10:00→22:47)
[2021-11-21] MEDS ORDERED: PANTOPRAZOLE 40 MG TABLET PO ONE (10:22)
[2021-11-21] MEDS ORDERED: ALPRAZolam 1 MG TABLET ONE ×2 (10:23→22:32)
[2021-11-21] MEDS ORDERED: levETIRAcetam 500 MG TABLET (FP) PO ONE (10:23)
[2021-11-21] MEDS ORDERED: CEFTRIAXONE 1 GM/50 ML BAG ONE (10:24)
[2021-11-21] MEDS: NYSTATIN 100000 UNIT/GM TOPICAL OINTMENT 15 GM TUBE TP SCH (10:45)
[2021-11-21] MEDS: ALPRAZolam 1 MG TABLET PO SCH ×2 (10:46→22:47)
[2021-11-21] MEDS: MULTIVITAMINS THER W-MINERALS COMBO TABLET (FP) PO SCH (10:46)
[2021-11-21 18:14] VITALS: TEMP 99.1
[2021-11-21 20:41] VITALS: BP 129/66; PULSE 63
[2021-11-21] MEDS ORDERED: ATORVASTATIN CA 80 MG TABLET (FP) ONE (22:33)
[2021-11-21] MEDS: ATORVASTATIN CA 80 MG TABLET (FP) PO SCH (22:47)
== END 2021-11-22 01:45 | disposition short-term general hospital (02) | DRG 811 ==
LOC: JER 10:33 → JERBED 14:48
PROVIDERS: ADMIT Internal Medicine; ATTEND Internal Medicine
PROC: 30233N1 Transfusion of Nonautologous Red Blood Cells into Peripheral Vein, Percutaneous Approach (ICD-10-PCS; principal; 2021-11-19)
DX: D64.89 Other specified anemias (principal); J18.9 Pneumonia, unspecified organism; E87.3 Alkalosis; E87.0 Hyperosmolality and hypernatremia; G40.802 Other epilepsy, not intractable, without status epilepticus; I13.0 Hypertensive heart and chronic kidney disease with heart failure and stage 1 through stage 4 chronic kidney disease, or unspecified chronic kidney disease; I48.91 Unspecified atrial fibrillation; I25.10 Atherosclerotic heart disease of native coronary artery without angina pectoris; J45.909 Unspecified asthma, uncomplicated; R09.02 Hypoxemia; E87.8 Other disorders of electrolyte and fluid balance, not elsewhere classified; I35.1 Nonrheumatic aortic (valve) insufficiency; N18.9 Chronic kidney disease, unspecified; I50.9 Heart failure, unspecified; Z95.2 Presence of prosthetic heart valve; Z95.5 Presence of coronary angioplasty implant and graft; Z86.73 Personal history of transient ischemic attack (TIA), and cerebral infarction without residual deficits
CPT/HCPCS: 0241U-QW; 36415; 36430; 36600; 71045-TC-FY; 80048; 80053; 81003; 82570; 82607; 82728; 82746; 82803; 82962; 83010; 83540; 83550; 83615; 83735; 83880; 84100; 84156; 84443; 84484; 85025; 85027; 85045; 85610; 85730; 86140; 86850; 86900; 86901; 86922; 87086; 93005; 93010; 93971-TC; 99285-25; P9058